=== PATIENT | male | born 1995 | race African-American/Black ===

== ENCOUNTER 2023-12-12 15:08 | Emergency (ER) | payer MEDICAID, OTHER ==
[~2023-12-12] VITALS: Ht 193 cm; Wt 117.9 kg
[2023-12-12] MEDS ORDERED: HYDROCODONE/APAP 5/325MG TABLET ONE (17:25)
[2023-12-12] MEDS: HYDROCODONE/APAP 5/325MG TABLET PO ONE (17:28)
[2023-12-12] MEDS ORDERED: LIDO30AD10 TP (17:30)
[2023-12-12] MEDS ORDERED: ACET325T53 PO (17:30)
[2023-12-12 18:00] VITALS: BP 121/62; TEMP 98; O2SAT 99
== END 2023-12-12 18:02 | disposition home or self-care (01) ==
LOC: ER 15:15
DX: S80.222A Blister (nonthermal), left knee, initial encounter (principal); M25.562 Pain in left knee; X58.XXXA Exposure to other specified factors, initial encounter; Y93.89 Activity, other specified; Y92.89 Other specified places as the place of occurrence of the external cause; Y99.8 Other external cause status